=== PATIENT | male | born 1965 | race Caucasian/White ===

== ENCOUNTER 2020-11-18 13:41 | Emergency (ER) | payer MEDICAID ==
[~2020-11-18] VITALS: Ht 170.2 cm; Wt 72.7 kg
[2020-11-18] MEDS ORDERED: PROPARACAINE HCL 0.5% 15 ML OPHTHALMIC SOLUTION OU ONE (14:30)
[2020-11-18] MEDS ORDERED: FLUORESCEIN SODIUM 1 MG STRIP ONE (15:24)
[2020-11-18 16:21] VITALS: BP 128/81
== END 2020-11-18 16:22 | disposition home or self-care (01) ==
LOC: EMS 13:53
DX: T15.92XA Foreign body on external eye, part unspecified, left eye, initial encounter (principal); T15.91XA Foreign body on external eye, part unspecified, right eye, initial encounter; X58.XXXA Exposure to other specified factors, initial encounter; Y93.89 Activity, other specified; Y92.89 Other specified places as the place of occurrence of the external cause; Y99.8 Other external cause status
CPT/HCPCS: 99283

== ENCOUNTER 2022-07-16 23:20 | Emergency (ER) | payer MEDICAID ==
[~2022-07-16] VITALS: Ht 175.3 cm; Wt 72.0 kg
[2022-07-17 00:15] VITALS: BP 117/69
== END 2022-07-17 00:57 | disposition home or self-care (01) ==
LOC: EMS 23:21
DX: K40.90 Unilateral inguinal hernia, without obstruction or gangrene, not specified as recurrent (principal); Z98.890 Other specified postprocedural states
CPT/HCPCS: 99283; Z7502

== ENCOUNTER 2023-07-19 18:00 | Emergency (ER) | payer MEDICAID ==
[~2023-07-19] VITALS: Ht 172.7 cm; Wt 72.7 kg
[~2023-07-19 18:00] MED LIST: CEPH-558 PO; DOXY-354 PO; SULF-261 PO
[2023-07-19 20:43] VITALS: BP 126/81; PULSE 65; RESP 16; TEMP 98.2
[2023-07-19] MEDS ORDERED: BACITRACIN 0.9 GM PACKET OINTMENT TP ONE (21:15)
== END 2023-07-19 21:25 | disposition home or self-care (01) ==
LOC: EMS 18:03
DX: M79.642 Pain in left hand (principal); Z98.890 Other specified postprocedural states
CPT/HCPCS: 99283

== ENCOUNTER 2024-03-11 20:58 | Emergency (ER) | payer MEDICAID ==
[~2024-03-11] VITALS: Ht 172.7 cm; Wt 72.7 kg
[2024-03-11 21:05] VITALS: TEMP 99.4
[2024-03-11 21:45] LABS: BASOPHILS % (AUTO) 0.8 % (0.0-2.0); EOSINOPHILS % (AUTO) 0.8 % (1.0-6.0); HEMATOCRIT 40.7 % (41-53); HEMOGLOBIN 13.1 g/dL (13.5-17.5); LYMPHOCYTES # (AUTO) 1.2 K/uL (1.0-4.8); LYMPHOCYTES % (AUTO) 11.7 % (22.0-44.0); MEAN CORPUSCULAR HEMOGLOBIN 29.2 pg (26.0-34.0); MEAN CORPUSCULAR HGB CONC 32.1 G/dL (31.0-37.0); MEAN CORPUSCULAR VOLUME 91 fL (80-100); MONOCYTES # (AUTO) 0.4 K/uL (0.1-1.0); MONOCYTES % (AUTO) 3.8 % (2.0-9.0); NEUTROPHILS # (AUTO) 8.3 K/uL (1.8-7.7); NEUTROPHILS % (AUTO) 82.9 % (40.0-70.0); PLATELET COUNT (AUTO) 445 K/uL (150-450); RED BLOOD CELL COUNT(AUTO) 4.47 MIL/uL (4.50-5.90); RED CELL DISTRIBUTION WIDTH 13.1 % (11.5-14.5)
[2024-03-11 22:00] LABS: ANION GAP 9 mmol/L (8-16); CALCIUM, TOTAL 8.3 mg/dL (8.8-10.5); CARBON DIOXIDE 29 mmol/L (22-29); CHLORIDE 101 mmol/L (98-107); CREATININE 1.14 mg/dL (0.60-1.30); GLOMERULAR FILTR. RATE CALC > 60 mL/min (>60); GLUCOSE,RANDOM 97 mg/dL (70-110); POTASSIUM 3.6 mmol/L (3.5-5.1); SODIUM SERUM 139 mmol/L (136-145); UREA NITROGEN, BLOOD 18 mg/dL (7-18)
[2024-03-12] MEDS ORDERED: SULF-261 PO (00:55)
[2024-03-12] MEDS ORDERED: CEPH-558 PO (00:55)
[2024-03-12 01:00] VITALS: BP 119/64; PULSE 84; RESP 17; O2SAT 98
[2024-03-12] MEDS: SULFAMETHOX/TRIMETH DS 800-160 MG/TABLET PO ONE (01:03)
[2024-03-12] MEDS: LIDOCAINE 1% 10 ML VIAL SQ ONE (01:03)
[2024-03-12] MEDS: CEPHALEXIN MONOHYDRATE 500 MG CAPSULE PO ONE (01:03)
[2024-03-12] MEDS: BACITRACIN 0.9 GM PACKET OINTMENT TP ONE (01:03)
== END 2024-03-12 02:40 | disposition home or self-care (01) ==
LOC: EMS 20:58
DX: L02.414 Cutaneous abscess of left upper limb (principal); F12.90 Cannabis use, unspecified, uncomplicated; F15.10 Other stimulant abuse, uncomplicated
CPT/HCPCS: 99284; 10060; 80048; 85025; 87040; 36415; J3490; 99283